=== PATIENT | male | born 1960 | race Asian ===

== ENCOUNTER 2016-07-21 11:55 | Emergency (ER) | payer MEDICARE, OTHER ==
[~2016-07-21] VITALS: Ht 154.9 cm; Wt 65.5 kg
[2016-07-21] MEDS ORDERED: OxyCODONE HCL/ACETAMINOPHEN 5-325 MG TABLET PO ONE (12:45)
[2016-07-21] MEDS ORDERED: ONDANSETRON HCL 4 MG TABLET PO ONE (12:45)
[2016-07-21] MEDS ORDERED: KETOROLAC TROMETHAMINE 60 MG/2 ML VIAL IM ONE (12:45)
[2016-07-21 14:01] VITALS: BP 128/71
== END 2016-07-21 14:04 | disposition home or self-care (01) ==
LOC: EMS 11:57
DX: M75.21 Bicipital tendinitis, right shoulder (principal); F17.210 Nicotine dependence, cigarettes, uncomplicated
CPT/HCPCS: 73030; 96372; 99284; J1885; Q0162

== ENCOUNTER 2016-11-13 16:13 | Emergency (ER) | payer MEDICARE, OTHER ==
[~2016-11-13] VITALS: Ht 154.9 cm; Wt 66.0 kg
[2016-11-13] MEDS ORDERED: IBUPROFEN 800 MG TABLET PO ONE (18:15)
[2016-11-13 19:21] VITALS: BP 140/83
== END 2016-11-13 19:51 | disposition home or self-care (01) ==
LOC: EMS 16:19
DX: S93.601A Unspecified sprain of right foot, initial encounter (principal); F17.210 Nicotine dependence, cigarettes, uncomplicated; X58.XXXA Exposure to other specified factors, initial encounter; Y93.01 Activity, walking, marching and hiking; Y92.89 Other specified places as the place of occurrence of the external cause; Y99.8 Other external cause status
CPT/HCPCS: 99282